=== PATIENT | female | born 1970 | race Two or more races ===

== ENCOUNTER 2023-06-07 12:35 | Emergency (ER) | payer OTHER, SELFPAY ==
--- NOTE | ~2023-06-07 | XR_ITS ---
EXAMINATION: XR WRIST, RIGHT XR HAND, RIGHT CLINICAL INFORMATION: COMPARISON: None available. TECHNIQUE: PA, lateral, and oblique views of the right wrist and PA, lateral, and oblique views of the right hand FINDINGS: RIGHT WRIST: The bones and soft tissues are normal. No fracture. Alignment is anatomic. Joint spaces are maintained. No erosions or soft tissue calcifications. RIGHT HAND: The bones and soft tissues are normal. No fracture. Alignment is anatomic. Joint spaces are maintained. No erosions or soft tissue calcifications. XR/XR hand wrist RT IMPRESSION: Normal right hand and wrist.
[2023-06-07 13:35] VITALS: BP 120/65; PULSE 88; RESP 16; TEMP 36.3; O2SAT 95; BMI 36.9
--- NOTE | 2023-06-07 13:36 | ED_ITS ---
HPI - Extremity Problem General Chief complaint: Extremity Injury, Upper Stated complaint: R hand problems Time Seen by Provider: 06/07/23 14:17 Source: patient, RN notes reviewed and old records reviewed Mode of arrival: ambulatory Limitations: no limitations History of Present Illness HPI Narrative: 53-year-old female with no significant PMHx presents to the ED today with complaint of right hand/wrist and thumb pain after striking her right hand on a plastic toy 1 mo ago. Reports pain radiation from her right thumb into her right elbow, worse with movement of the thumb. Reports taking ibuprofen with minimal relief. Denies fever/ chills, numbness/ tingling/ weakness of the RUE. MD Complaint: extremity pain and extremity swelling Related Data Allergies Allergy/AdvReac Type Severity Reaction Status Date / Time aspirin [From Sherrie-[place]] Allergy Hives Verified 06/07/23 13:35 citric acid Allergy Hives Verified 06/07/23 13:35 [From Sherrie-[place]] morphine Allergy Anaphylaxis Verified 06/07/23 13:35 sodium bicarbonate Allergy Hives Verified 06/07/23 13:35 [From Sherrie-[place]] cinnamon AdvReac Blister Verified 06/07/23 13:35 Review of Systems Review of Systems: Constitutional: No Fever, No Chills ENT/Mouth: No Ear Pain, No Nasal Congestion,No sore throat, No Rhinorrhea, No Swallowing Difficulty Cardiovascular: No Chest Pain, No SOB Respiratory: No Cough, No Sputum, No Wheezing Gastrointestinal: No Nausea, No Vomiting, No Diarrhea, No Constipation, No Abdominal pain Musculoskeletal: + thumb pain, No joint pain, No Myalgias, + Joint Swelling Skin: No Skin Lesions, No rash Neuro: No Weakness, No Numbness, No Paresthesias Yes all other systems are reviewed and are negative Constitutional: Constitutional: Reports as per HPI [facility] Past Medical History Attestation statement: The following information was validated with the patient. Source: old records reviewed Social History Social History Advance Directives: No Physical Exam Vital Signs: Vital Signs: Last Vital Signs Temp 97.4 F 06/07/23 13:35 Pulse 88 06/07/23 13:35 Resp 16 06/07/23 13:35 BP 120/65 06/07/23 13:35 Pulse Ox 95 06/07/23 13:35 O2 Del Method Room Air 06/07/23 13:35 BMI result Body Mass Index 36.9 Const: General: cooperative, healthy appearing, no acute distress and alert Orientation/consciousness: patient oriented x3 Limitations: no limitations HEENT: Head: Yes normal to inspection and Yes atraumatic Ears: hearing grossly normal bilaterally General nose exam: Normal external nose present Face and sinus: Yes normal facial exam Eyes: General: appearance normal, both eyes and all related structures EOM: EOMs intact bilaterally Neck: Neck: Yes normal visual inspection and Yes no meningeal signs Resp: Effort & Inspection: normal respiratory effort and no respiratory distress Auscultation: clear to auscultation bilaterally Cardio: Rate: regular rate Heart sounds: S1 normal heart sound present and S2 normal heart sound present Skin: Rashes: no rashes Wounds: no wounds Neuro: General: patient oriented x3, tone normal and no meningeal signs Cranial nerves: Yes CN's II-XII intact bilaterally Gait exam (Neuro): Normal gait present Extrem: Other: No erythema or ecchymosis noted to the R hand/ wrist. + swelling overlying the right MCP, thenar eminence and volar wrist with tenderness to palpation & decreased ROM 2/2 pain. + phalens and tinels. No snuffbox tenderness. ROM intact. NV intact distally. General: Yes normal to inspection Right upper extremity: normal capillary refill and edema; no cyanosis Course Course Course Narrative: This is an RME: Additional HPI, ROS, PE not included below will be deferred to primary provider. [id number] presenting to the emergency department with complaints of right hand pain x 1 month. Reports 1 month ago she was putting together a plastic toy for her child and noticed pain 3 days later. Was seen by PCP and was told that she did not have any broken bones. On exam, patient has tenderness palpation along the snuffbox and ulna. Also reporting elbow pain but full range of motion of the elbow, decreased range of motion of the wrist unable to fully make a fist given pain and discomfort. Radial pulses 2+ Plan: X-ray right hand and wrist Reevaluation(s) Reevaluation #1: -[id number]-- XR hand wrist RT IMPRESSION: Normal right hand and wrist. > Likely muscle sprain/ strain > will apply volar splint and plan for ortho outpatient follow up Medical Decision Making Medical Decision Making [facility] Narrative: 53-year-old female with no significant PMHx presents to the ED today with complaint of right hand/wrist and thumb pain after striking her right hand on a plastic toy 1 mo ago. Vital signs stable. Patient nontoxic appearing, in NAD, with swelling overlying the right MCP, thenar eminence and volar wrist, tender to palpation with positive phalens and tinels sign, no snuffbox tenderness, ROM intact, NV intact distally. Clinical concern for sprain/ strain vs fracture or dislocation vs carpel/ cubital tunnel. Low suspicion for compartment syndrome, septic joint, NV comprmise, threat to limb, or osteo. Plan: right hand/wrist xray, wrist splint Please refer to course for remaining clinical decision making, interpretation of labs/imaging results, and discussions with consultants and/or family members. Differential Diagnosis Differential Diagnoses: The differential diagnosis associated with the presentation includes As above Lab Data [facility] Lab Attestation statement: I reviewed the patient's lab results. Independent Interpretation I performed an independent interpretation of an: Plain X-Ray Radiology Impression Discussion of test interpretation with radiology: I have reviewed the radiologist's reading. Radiologist Impression: XR hand wrist RT IMPRESSION: Normal right hand and wrist. External Record Review External record reviewed: Inpatient record, Office record, Outpatient record, Prior outpatient labs, Prior outpatient radiology, Primary care record and Outside ED record Tests considered The following testing was considered but not selected: As above Prescription Management I considered prescription management with: Pain Medication Discharge Plan Discharge Clinical Impression: Sprain and strain of wrist Patient Disposition: Home, Self-Care Instructions: Wrist Sprain (ED) Additional Instructions: The xrays of your right wrist/ hand were reassuring. This is likely a sprain. You have been provided a splint. Please continue to use this to stabilize your wrist. You've been provided with an orthopedic referal. CALL THEM TO SCHEDULE AN APPOINTMENT. Take tylenol and ibuprofen as needed for pain. Return to the ED for worsening symptoms. Referrals: [facility] [Provider Group]
== END 2023-06-07 15:47 | disposition home or self-care (01) ==
PROVIDERS: Emergency Provider Emergency Medicine; PCP Nurse Practitioner Family
DX: S63.501A Unspecified sprain of right wrist, initial encounter (principal); M25.531 Pain in right wrist; X58.XXXA Exposure to other specified factors, initial encounter; Y93.9 Activity, unspecified; Y92.9 Unspecified place or not applicable; Y99.9 Unspecified external cause status
CPT/HCPCS: 29125; 73110; 73130; 99281; 99283

== ENCOUNTER 2023-09-06 20:55 | Emergency (ER) | payer MEDICAID, SELFPAY ==
[2023-09-06 21:09] VITALS: BP 115/76; PULSE 56; RESP 18; TEMP 37.4; O2SAT 99; BMI 31.9
[2023-09-06 22:11] LABS: IDNOW Serial# BCCEAD1C; Influenza A Positive (Negative); Influenza B2 Negative (Negative)
[2023-09-06 22:12] LABS: IDNOW Serial# 08D9AD1C
[2023-09-06 22:13] LABS: COVID-19 Test Negative (Negative)
--- NOTE | 2023-09-06 22:30 | ED.GENADULT ---
HPI - General Adult General Chief complaint: General Medical Stated complaint: headache, bodyaches, weakness Time Seen by Provider: 09/06/23 22:03 History of Present Illness HPI narrative: positive coughing congestion upper respiratory symptoms positive generalized malaise. Symptoms been ongoing for 2 days. No diaphoresis. No chest pain. Patient's daughter and patient's also sick. Very similar symptoms. Related Data Previous Rx's Medication Instructions Recorded oseltamivir 75 mg capsule (Tamiflu) 75 mg PO BID 5 days #10 caps 09/06/23 Allergies Allergy/AdvReac Type Severity Reaction Status Date / Time aspirin [From Sherrie-[place]] Allergy Hives Verified 06/07/23 13:35 citric acid Allergy Hives Verified 06/07/23 13:35 [From [facility]rie-[place]] metformin Allergy Hives Verified 09/06/23 21:14 morphine Allergy Anaphylaxis Verified 06/07/23 13:35 pioglitazone [From Actos] Allergy Hives Verified 09/06/23 21:14 sodium bicarbonate Allergy Hives Verified 06/07/23 13:35 [From Sherrie-[place]] cinnamon AdvReac Blister Verified 06/07/23 13:35 Review of Systems Review of Systems: Positive coughing congestion upper respiratory symptoms since yesterday. Positive generalized malaise and headache Yes all other systems are reviewed and are negative [facility] Past Medical History Attestation statement: The following information was validated with the patient. Social History Social History Advance Directives: No Advance Directives Information Provided: No Physical Exam ED Vital Signs: Vital Signs - 24 hr 09/06/23 21:09 Temperature 99.3 F Pulse Rate 56 Respiratory Rate 18 Blood Pressure 115/76 Pulse Oximetry 99 Oxygen Delivery Method Room Air BMI result Body Mass Index 31.9 Appearance: Alert. Oriented X3. No acute distress. Eyes: Pupils equal, round and reactive to light. ENT: Pharynx normal. Neck: Normal inspection. Neck supple. No lymph nodes noted. No crepitus CVS: Normal heart rate and rhythm. Pulses normal. Normal S1 and S2 Respiratory: No respiratory distress. Breath sounds normal. No Wheezing. No rales Abdomen: Soft and nontender. No rigidity. No distention. good BS x4 Skin: Skin warm and dry. Normal skin color. Normal skin turgor. Extremities: No lower extremity edema. Neurovascular intact to all extremities. No Lacerations. No Rash Neuro: Oriented X 3. No motor deficit. No sensory deficit. Moving all extermities. No slurred speech Medical Decision Making Medical Decision Making [facility] Narrative: well-appearing no acute distress. Patient's lungs are clear. COVID and RSV was negative. Patient's influenza was positive. Likely the cause of patient's symptoms. O2 sat is normal. Patient's symptoms less than 48 hours. After long discussion patient patient preferred to have Tamiflu. Will start patient on medication follow up on an outpatient basis. Differential Diagnosis Differential Diagnoses: The differential diagnosis associated with the presentation includes Pneumonia flu RSV COVID Admission/Observation Consideration of admission/observation: Escalation of care including admission/observation considered Lab Data [facility] Lab Attestation statement: I reviewed the patient's lab results. Labs: Lab Results 09/06/23 Range/Units 21:35 COVID-19 (AMITA) Negative (Negative) COVID-19 Clin Com See Note Influenza Type A (JIM) Positive A (Negative) Influenza Type B (JIM) Negative (Negative) Influenza A & B Note See Note Independent Historian Clinical information obtained from an independent historian. History obtained from or confirmed by: Spouse Prescription Management I considered prescription management with: Pain Medication and Antibiotic Chronic Conditions Patient?s care impacted by: Diabetes Discharge Plan Discharge Clinical Impression: Influenza Patient Disposition: Home, Self-Care Instructions: Influenza (ED) Prescriptions: New oseltamivir [Tamiflu] 75 mg capsule 75 mg PO BID 5 Days Qty: 10 0RF Referrals: Tracy Sexton NP [Primary Care Provider] - 09/08/23
== END 2023-09-06 22:43 | disposition home or self-care (01) ==
PROVIDERS: Emergency Provider Emergency Medicine Emergency Medical Services; PCP Nurse Practitioner Family
DX: J10.1 Influenza due to other identified influenza virus with other respiratory manifestations (principal); Z11.52 Encounter for screening for COVID-19
CPT/HCPCS: 87502; 87635; 99282; 99283

== ENCOUNTER 2024-02-08 20:53 | Emergency (ER) | payer OTHER, SELFPAY ==
--- NOTE | 2024-02-08 | ECG_ITS ---
Test Reason : CHEST PAIN Blood Pressure : / mmHG Vent. Rate : 087 BPM Atrial Rate : 087 BPM P-R Int : 146 ms QRS Dur : 076 ms QT Int : 368 ms P-R-T Axes : 026 -22 020 degrees QTc Int : 442 ms Normal sinus rhythm Low voltage QRS Cannot rule out Anterior infarct , age undetermined Abnormal ECG No previous ECGs available Referred By: Generic ED Physician Electronically Signed By:KIM ORTEGA MD
--- NOTE | ~2024-02-08 | XR_ITS ---
EXAMINATION: XR CHEST CLINICAL INFORMATION: Chest pain. COMPARISON: None available. TECHNIQUE: Frontal view of the chest was obtained. FINDINGS: No significant abnormality is noted involving the heart, lungs, mediastinum, bony thorax or soft tissues. XR/XR chest 1V IMPRESSION: Unremarkable examination.
[2024-02-08 21:04] VITALS: BP 147/78; PULSE 87; RESP 16; TEMP 36.2; O2SAT 98; BMI 32.2
--- NOTE | 2024-02-08 21:48 | MHC.EDTECH ---
PATIENT BLOOD DRAWN AND URINE SAMPLE COLLECTED AND SENT TO LAB .
[2024-02-08 21:53] LABS: Basophils Percent Auto 0.6 % (0-2); Eosinophils Absolute Auto 0.1 X10*3/uL (0.0-0.4); Eosinophils Percent Auto 3.5 % (0-4); Hematocrit 38.1 % (37.0-47.0); Hemoglobin 12.2 g/dl (12.0-16.0); Imm Gran Abs Auto 0.01 X10*3/uL (0.00-0.03); Imm Gran Pct Auto 0.3 % (0.0-0.4); Lymphocytes Absolute Auto 1.3 X10*3/uL (1.2-4.9); Lymphocytes Percent Auto 37.2 % (20-40); Mean Corpuscular Hemoglobin 26.5 pg (27.0-33.0); Mean Corpuscular Volume 82.6 fL (80.0-98.0); Monocytes Absolute Auto 0.3 X10*3/uL (0.1-1.2); Neutrophils Absolute Auto 1.7 x10*3/uL (2.0-8.3); Neutrophils Percent Auto 49.4 % (45-73); Red Blood Count 4.61 X10*6/uL (4.20-5.50); Red Cell Distribution Width 14.1 % (11.0-16.0); White Blood Count 3.4 X10*3/uL (4.8-10.8)
[2024-02-08 21:54] LABS: Platelet Count 80 X10*3/uL (160-400)
[2024-02-08 21:55] LABS: Appearance Urine Clear; Color Urine Yellow; Glucose Urine UA >=1000 mg/dL (Negative); Leukocyte Esterase Urine Negative (Negative); MANUAL DIFF FLAG SCAN; Nitrite Urine Negative (Negative); Specific Gravity - Urine >= 1.030 (1.005-1.025); UMIC TRIGGER UACC YES; Urine Blood Negative (Negative); Urine Ketones Negative (Negative); Urine Protein Negative (Neg-Trace)
[2024-02-08 22:13] LABS: SLIDE REVIEW VERIFIED
[2024-02-08 22:14] LABS: Anion Gap 13 (12-20); Blood Urea Nitrogen 8 mg/dL (9-16); Calcium 8.9 mg/dL (8.4-10.2); Carbon Dioxide 25 mmol/L (22-29); Chloride 100 mmol/L (96-108); Creatinine Clr Calc Pharmacy 95.2; Estimated Glomerular Filt Rate > 60; Glucose Random 484 mg/dL (60-115); Potassium 4.2 mmol/L (3.3-5.1); Sodium 134 mmol/L (135-145)
[2024-02-08 22:21] LABS: Bacteria Urine Trace (None Seen); Hyaline Casts Urine 0-2 /LPF (0-2); RBC Urine 0-2 /HPF (0-2); WBC Urine 0-5 /HPF (0-5)
[2024-02-08 22:23] LABS: Troponin-I High Sensitivity < 2.7 ng/L (<3.5-17.0)
[2024-02-09 00:54] VITALS: BP 130/72; PULSE 89; RESP 18; O2SAT 96
[2024-02-09 01:34] LABS: Troponin-I High Sensitivity < 2.7 ng/L (<3.5-17.0)
--- NOTE | 2024-02-09 01:38 | ED.CHESTPAIN ---
HPI - Chest Pain General Chief Complaint: Chest Pain Stated Complaint: Chest pains Time Seen by Provider: 02/09/24 01:09 Source: patient Mode of arrival: ambulatory History of Present Illness HPI narrative: 54-year-old female presents with what she thinks may be acid reflux but was concerned because is been going on for couple of days, she has not taken any antacids and is a little more concerned because she has a history of an aneurysm which is currently being monitored by her safety belt installer at [facility]. She denies any associated dizziness or nausea. Related Data Previous Rx's ?Medication ?Instructions ?Recorded oseltamivir 75 mg capsule (Tamiflu) 75 mg PO BID 5 days #10 caps 09/06/23 Allergies Allergy/AdvReac Type Severity Reaction Status Date / Time aspirin [From Sherrie-[place]] Allergy Hives Verified 06/07/23 13:35 citric acid Allergy Hives Verified 06/07/23 13:35 [From Sherrie-[place]] hydromorphone [From Dilaudid] Allergy Anaphylaxis Verified 02/08/24 21:04 metformin Allergy Hives Verified 09/06/23 21:14 morphine Allergy Anaphylaxis Verified 06/07/23 13:35 pioglitazone [From Actos] Allergy Hives Verified 09/06/23 21:14 sodium bicarbonate Allergy Hives Verified 06/07/23 13:35 [From Sherrie-[place]] cinnamon AdvReac Blister Verified 06/07/23 13:35 Review of Systems Review of Systems: Pertinent positives and negatives as stated in HPI PMFSH Past Medical History Source: nursing notes reviewed Social History Social History Smoked in Last 30 Days: No Use of substances other than those prescribed or required for medical reasons: No Advance Directives: No Advance Directives Information Provided: Yes Do you have a plan to hurt others: No Plan Patient : No Physical Exam Vital Signs: Vital Signs: Last Vital Signs Temp 97.1 F 02/08/24 21:04 Pulse 90 02/09/24 02:12 Resp 12 02/09/24 02:12 BP 130/72 02/09/24 00:54 Pulse Ox 98 02/09/24 02:12 O2 Del Method Room Air 02/09/24 02:12 BMI result Body Mass Index 32.2 VITAL SIGNS: Reviewed. GENERAL: Well developed, well nourished, in no acute distress. HEAD: Normocephalic/atraumatic EYES: PERRLA, EOMI LUNGS: Normal breath sounds. No adventitious sounds or accessory muscle use. SpO2<98> CARDIOVASCULAR: Regular rate and rhythm without noted murmurs ABDOMEN: Soft, non-tender, non-distended with bowel sounds. MUSCULOSKELETAL: No tenderness, deformities, or effusions noted on gross inspection. EXTREMITIES: No cyanosis, clubbing or edema. SKIN: Inspection of the skin reveals no rashes NEUROLOGIC: Alert and oriented x 4. Strength and sensation to light touch were grossly intact x 4. Medications Administered Discontinued Medications Generic Name Dose Route Start Last Admin Trade Name Freq PRN Reason Stop Dose Admin Al Hydroxide/Mg Hydroxide 30 ml 02/09/24 01:49 02/09/24 02:11 Magnesium Hydrox/Alum Hydrox 30 Ml Oral.Susp PO 02/09/24 01:50 30 ml ONCE ONE Administration Lidocaine HCl 10 ml 02/09/24 01:49 02/09/24 02:11 Lidocaine Hcl Viscous 2 % 15 Ml Solution MUCOUS MEM 02/09/24 01:50 10 ml ONCE ONE Administration Sucralfate 1 gm 02/09/24 01:49 02/09/24 02:11 Sucralfate Oral Suspension 1 Gm/10 Ml Oral.Susp PO 02/09/24 01:50 1 gm ONCE ONE Administration Medical Decision Making Medical Decision Making [facility] Narrative: 54-year-old female with history and clinical presentation; DDX: Acid reflux/GERD, no clinical suspicion for cardiopulmonary etiology no concern at this time for any related symptoms with underlying stable aneurysms I reviewed all investigations and hematologic indices are not significant for leukocytosis/anemia/thrombocytopenia. Chemistry and seizure not significant for KYRIE or electrolyte derangements, patient does have a a noted elevated glucose level likely secondary to food items consume just prior to arrival. Will repeat point of care. Serial troponins are undetectable and there were no acute changes on EKG. Urinalysis negative for UTI or hematuria. Viral testing is negative for COVID-19/influenza and chest x-ray is not significant for infiltrate or venous congestion otherwise my interpretation is in agreement with radiology's impression. Patient was offered GI cocktail and Carafate and on re-evaluation states she is feeling improved. She is otherwise discharged with instructions follow-up with her safety belt installer and primary care doctor. Differential Diagnosis Differential Diagnoses: The differential diagnosis associated with the presentation includes Please see the discussion above Admission/Observation Consideration of admission/observation: Escalation of care including admission/observation considered Please see the discussion Lab Data [facility] Lab Attestation statement: I reviewed the patient's lab results. Please see the discussion above 02/08/24 21:45 02/08/24 21:45 Labs: Lab Results 02/08/24 02/09/24 02/09/24 Range/Units 21:45 01:07 02:40 WBC 3.4 L (4.8-10.8) X10*3/uL RBC 4.61 (4.20-5.50) X10*6/uL Hgb 12.2 (12.0-16.0) g/dl Hct 38.1 (37.0-47.0) % MCV 82.6 (80.0-98.0) fL MCH 26.5 L (27.0-33.0) pg MCHC 32.0 (31.0-35.0) g/dl RDW 14.1 (11.0-16.0) % Plt Count 80 L (160-400) X10*3/uL MPV 12.0 (9.4-12.3) fL Immature Gran % (Auto) 0.3 (0.0-0.4) % Neut % (Auto) 49.4 (45-73) % Lymph % (Auto) 37.2 (20-40) % Yancey % (Auto) 9.0 (2-11) % Eos % (Auto) 3.5 (0-4) % Baso % (Auto) 0.6 (0-2) % Lymph # (Auto) 1.3 (1.2-4.9) X10*3/uL Yancey # (Auto) 0.3 (0.1-1.2) X10*3/uL Eos # (Auto) 0.1 (0.0-0.4) X10*3/uL Baso # (Auto) 0.0 (0.0-0.2) X10*3/uL Abs Immat Gran (auto) 0.01 (0.00-0.03) X10*3/uL Absolute Neuts (auto) 1.7 L (2.0-8.3) x10*3/uL Absolute Nucleated RBC 0.000 (0.0-0.012) X10*3/uL Nucleated RBC % (auto) 0.0 (0.0-0.2) /100WBC Smear Tech's Comments VERIFIED Sodium 134 L (135-145) mmol/L Potassium 4.2 (3.3-5.1) mmol/L Chloride 100 (96-108) mmol/L Carbon Dioxide 25 (22-29) mmol/L Anion Gap 13 (12-20) BUN 8 L (9-16) mg/dL Creatinine 0.81 (0.5-1.4) mg/dL Estim Creat Clear Calc 95.2 Estimated GFR > 60 Random Glucose 484 H* (60-115) mg/dL Calcium 8.9 (8.4-10.2) mg/dL Troponin I High Sens < 2.7 < 2.7 (<3.5-17.0) ng/L Urine Color Yellow Urine Appearance Clear Urine pH 7.0 (5.0-9.0) Ur Specific [place] >= 1.030 H (1.005-1.025) Urine Protein Negative (Neg-Trace) mg/dL Urine Glucose (UA) >=1000 H (Negative) mg/dL Urine Ketones Negative (Negative) mg/dL Urine Blood Negative (Negative) Urine Nitrite Negative (Negative) Ur Leukocyte Esterase Negative (Negative) Urine RBC 0-2 (0-2) /HPF Urine WBC 0-5 (0-5) /HPF Ur Squamous Epith Cells 3-5 (0-2) /HPF Urine Bacteria Trace (None Seen) Hyaline Casts 0-2 (0-2) /LPF Urine Yeast Present COVID-19 (AIMTA) Negative (Negative) COVID-19 Clin Com See Note Influenza Type A (JIM) Negative (Negative) Influenza Type B (JIM) Negative (Negative) Influenza A & B Note See Note Independent Interpretation I performed an independent interpretation of an: EKG Interpretation: Normal sinus rhythm, HR-87, no STEMI, TN/QRS/QTC is within normal limits. Radiology Impression Discussion of test interpretation with radiology: I have reviewed the radiologist's reading. Radiologist Impression: Please see the discussion above Chronic Conditions Patient?s care impacted by: Hypertension Critical Care Time Critical Care Time Critical Care Time: Yes Total Critical Care Time: 45 Attestation: I personally attest to this time spent taking care of the patient. Discharge Plan Discharge Clinical Impression: Atypical chest pain, GERD (gastroesophageal reflux disease), Hyperglycemia due to diabetes mellitus Patient Disposition: Home, Self-Care Instructions: Diet for Stomach Ulcers and Gastritis (ED), Gastroesophageal Reflux Disease (ED), Diabetic Hyperglycemia (ED) Additional Instructions: 1. Resume all home medications as prescribed. 2. Recommend [id number] famotidine, daily. 3. Follow-up with primary care doctor in the next 1-2 days Return to the ER for any worsening symptoms Prescriptions: No Action oseltamivir [Tamiflu] 75 mg capsule 75 mg PO BID 5 Days Qty: 10 0RF Referrals: Tracy Sexton NP [Primary Care Provider] - Print Language: Albanian
[2024-02-09] MEDS: Magnesium Hydrox/Alum Hydrox 30 ML ORAL.SUSP PO (02:11)
[2024-02-09] MEDS: Lidocaine HCl Viscous 2 % 15 ML SOLUTION 10 ML MUCOUS MEM (02:11)
[2024-02-09] MEDS: Sucralfate Oral Suspension 1 GM/10 ML ORAL.SUSP PO (02:11)
[2024-02-09 02:12] VITALS: PULSE 90; RESP 12; O2SAT 98
[2024-02-09 03:05] LABS: COVID-19 Test Negative (Negative); IDNOW Serial# 08D9AD1C
[2024-02-09 03:06] LABS: IDNOW Serial# 152EDE1D; Influenza A Negative (Negative); Influenza B2 Negative (Negative)
--- NOTE | 2024-02-09 03:10 | PC.NURSE ---
Assumed care of pt. Pt lying on stretcher, no acute distress at this time.
[2024-02-09 03:21] LABS: Glucose, Whole Blood 369 mg/dL (60-115)
[2024-02-09 03:32] VITALS: BP 134/74; PULSE 88; RESP 12; TEMP 36.8; O2SAT 98
== END 2024-02-09 03:34 | disposition home or self-care (01) ==
PROVIDERS: Emergency Provider Student in an Organized Health Care Education/Training Program; PCP Nurse Practitioner Family
DX: R07.89 Other chest pain (principal); K21.9 Gastro-esophageal reflux disease without esophagitis; E11.65 Type 2 diabetes mellitus with hyperglycemia; Z11.52 Encounter for screening for COVID-19
CPT/HCPCS: 36415; 71045; 80048; 81001; 82947; 84484; 85025; 87502; 87635; 93005; 99284; 99285

== ENCOUNTER → 2024-02-08 20:57 | Outpatient (BNV) | payer MEDICAID, SELFPAY | PROVIDERS: Emergency Provider Student in an Organized Health Care Education/Training Program; PCP Nurse Practitioner Family; Visit Provider Internal Medicine Cardiovascular Disease | DX: R94.31 Abnormal electrocardiogram [ECG] [EKG] (principal) | CPT/HCPCS: 93010 ==